=== PATIENT | male | born 1980 | race Caucasian/White ===

== ENCOUNTER 2017-02-03 22:33 | Emergency (ER) | payer OTHER ==
[~2017-02-03] VITALS: Ht 180.3 cm; Wt 117.9 kg
[2017-02-03 22:49] LABS: BASOPHILS # (AUTO) 0.1 10^3/uL (0.0-0.1); BASOPHILS % (AUTO) 1 % (0-10); EOSINOPHILS # (AUTO) 0.2 10^3/uL (0.0-0.3); EOSINOPHILS % (AUTO) 2 % (0-10); LYMPHOCYTES # (AUTO) 2.7 X 10^3 (1.0-4.0); LYMPHOCYTES % (AUTO) 29 % (12-44); MEAN CORPUSCULAR HEMOGLOBIN 31 PG (25-34); MEAN CORPUSCULAR HGB CONC 36 G/DL (32-36); MEAN CORPUSCULAR VOLUME 84 FL (80-99); MEAN PLATELET VOLUME 9.6 FL (7.4-10.4); MONOCYTES # (AUTO) 0.9 X 10^3 (0.0-1.0); MONOCYTES % (AUTO) 10 % (0-12); NEUTROPHILS # (AUTO) 5.6 X 10^3 (1.8-7.8); NEUTROPHILS % (AUTO) 59 % (42-75); PLATELET COUNT 361 10^3/uL (130-400); RED BLOOD COUNT 4.62 10^6/uL (4.35-5.85); WHITE BLOOD COUNT 9.5 10^3/uL (4.3-11.0)
[2017-02-03 23:08] LABS: ALANINE AMINOTRANSFERASE 69 U/L (0-55); ALBUMIN 4.6 G/DL (3.2-4.5); ANION GAP 17 MMOL/L (5-14); ASPARTATE AMINO TRANSFERASE 45 U/L (5-34); BILIRUBIN,TOTAL 0.9 MG/DL (0.1-1.0); BLOOD UREA NITROGEN 10 MG/DL (7-18); BUN/CREATININE RATIO 10; CALCIUM 9.2 MG/DL (8.5-10.1); CARBON DIOXIDE 17 MMOL/L (21-32); CHLORIDE 104 MMOL/L (98-107); CREATININE SERUM 0.98 MG/DL (0.60-1.30); GFR ESTIMATED > 60; GLUCOSE 159 MG/DL (70-105); SALICYLATE < 5.0 MG/DL (5.0-20.0); SODIUM 138 MMOL/L (135-145); TOTAL PROTEIN 8.4 G/DL (6.4-8.2)
[2017-02-03 23:09] LABS: ACETAMINOPHEN < 10 UG/ML (10-30); ALCOHOL < 10 MG/DL (<10)
--- NOTE | 2017-02-03 23:09 | ED General ---
General Chief Complaint: Substance Abuse Stated Complaint: SUBSTANCE ABUSE Nursing Triage Note: PT ARRIVED PER EMS [facility], PT STATES HAS ATE 1GM OF METH APPROX 1 HOUR BEFORE ARRIVAL, PT IS RESTLESS, A & O X4. Nursing Sepsis Screen: No Definite Risk Source of Information: Patient (LIMITED HISTORIAN), EMS History of Present Illness Time Seen by Provider: 22:33 Initial Comments PT ARRIVES [facility]IA [facility] PT USED METH APPROXIMATELY AN HOUR AGO--STATES HE ATE/SWALLOWED A GRAM OF METH STATES FOR THE LAST 30 MINUTES "IT FEELS LIKE HIS HEART IS GOING TO EXPLODE" STATES HE USES METH ON A REGULAR BASIS, AND LAST TIME WAS YESTERDAY AND STATES HE USED 1/4 OR 1/2 GRAM OF METH AT THAT TIME CLAIMS IT USUALLY DOES NOT MAKE HIM FEEL THIS WAY, BUT ALSO USUALLY DOES NOT USE THIS MUCH AT A TIME STATES IT USUALLY TAKES AROUND 5 HOURS FOR HIM TO "COME DOWN" FROM HIS HIGH STATES HE "WAS PASSING THROUGH" THE AREA AND STOPPED IN [place] A COUPLE OF DAYS AGO, AND HAS BEEN USING METH SINCE HE GOT HERE, AND IS ON HIS WAY TO [place]-- STATES HE IS HOMELESS AND HAS BEEN HOMELESS FOR SOME TIME, AND DOES NOT KNOW ANYONE IN THIS AREA PT STATES HE IS FROM [place], BUT GIVES HIS ADDRESS [place], [place] STATES HIS VEHICLE IS AT A [employer] PT STATES HE HAD "1 DRINK" TONIGHT Allergies and Home Medications Allergies Coded Allergies: No Known Drug Allergies (Unverified , 02/03/17) Home Medications No Active Prescriptions or Reported Meds Constitutional: other (PER HPI) Respiratory: no symptoms reported Cardiovascular: see HPI Musculoskeletal: no symptoms reported Skin: no symptoms reported Psychiatric/Neurological: See HPI Hematologic/Lymphatic: No Symptoms Reported Past Nzqygzp-Vvvocb-Ihzmnp Hx Patient Social History Alcohol Use: Occasionally Uses Recreational Drug Use: Yes (METH, THC--DENIES IV USE) Drug of Choice: METH Smoking Status: Current Everyday Smoker (1-2 PPD) Type Used: Cigarettes Recent Foreign Travel: No Contact w/Someone Who Travel: No Recent Infectious Disease Expo: No Recent Hopitalizations: No Seasonal Allergies Seasonal Allergies: No Surgeries HX Surgeries: No Respiratory Hx Respiratory Disorders: No Cardiovascular Hx Cardiac Disorders: No Neurological Hx Neurological Disorders: Yes Neurological Disorders: Traumatic Brain Injury Reproductive System Hx Reproductive Disorders: No Genitourinary Hx Genitourinary Disorders: No Gastrointestinal Hx Gastrointestinal Disorders: No Musculoskeletal Hx Musculoskeletal Disorders: No Endocrine Hx Endocrine Disorders: No HEENT HX ENT Disorders: No Cancer Hx Cancer: No Psychosocial Hx Psychiatric Problems: Yes (METH AND MARIJUANA USE) Behavioral Health Disorders: PTSD Family Medical History Other WAS IN ,BUT GOT OUT IN 2011--STATES HE TESTED NEGATIVE FOR HIV WHILE IN ,BUT DOES NOT KNOW IF HE WAS TESTED FOR HEPATITIS. HAS NOT BEEN RETESTED AT ANY TIME SINCE THEN Physical Exam Vital Signs Vital Sign - Last 12Hours 02/03/17 22:35 Temp 98.7 Pulse 124 Resp 18 B/P (MAP) 166/125 Pulse Ox 96 O2 Delivery Room Air Capillary Refill : Less Than 3 Seconds General Appearance: WD/WN, Anxious, Obese, Other (OBVIOUSLY "TWEAKING"-- CONSTANT MOVEMENTS OF ENTIRE BODY AND MOUTH, TALKING RAPIDLY NON-STOP. ) HEENT: PERRL/EOMI, Other (POOR DENTITION) Neck: Normal Inspection Respiratory: Normal Breath Sounds, No Accessory Muscle Use, No Respiratory Distress (MILD HYPERVENTILATION) Cardiovascular: No JVD, No Murmur, Tachycardia Gastrointestinal: Soft Extremity: Normal Range of Motion, No Pedal Edema Neurologic/Psychiatric: Alert, Oriented x3, No Motor/Sensory Deficits, job analyst II- XII Norm as Tested Skin: Normal Color, Warm/Dry, Tattoos/Piercings (EXTENSIVE TATTOOS) Progress/Results/Core Measures Results/Orders Lab Results Laboratory Tests Test 02/03/17 22:40 02/03/17 23:15 Range/Units White Blood Count 9.5 4.3-11.0 10^3/uL Red Blood Count 4.62 4.35-5.85 10^6/uL Hemoglobin 14.1 13.3-17.7 G/DL Hematocrit 39 L 40-54 % Mean Corpuscular Volume 84 80-99 FL Mean Corpuscular Hemoglobin 31 25-34 PG Mean Corpuscular Hemoglobin Concent 36 32-36 G/DL Red Cell Distribution Width 13.0 10.0-14.5 % Platelet Count 361 130-400 10^3/uL Mean Platelet Volume 9.6 7.4-10.4 FL Neutrophils (%) (Auto) 59 42-75 % Lymphocytes (%) (Auto) 29 12-44 % Monocytes (%) (Auto) 10 0-12 % Eosinophils (%) (Auto) 2 0-10 % Basophils (%) (Auto) 1 0-10 % Neutrophils # (Auto) 5.6 1.8-7.8 X 10^3 Lymphocytes # (Auto) 2.7 1.0-4.0 X 10^3 Monocytes # (Auto) 0.9 0.0-1.0 X 10^3 Eosinophils # (Auto) 0.2 0.0-0.3 10^3/uL Basophils # (Auto) 0.1 0.0-0.1 10^3/uL Sodium Level 138 135-145 MMOL/L Potassium Level 4.0 3.6-5.0 MMOL/L Chloride Level 104 98-107 MMOL/L Carbon Dioxide Level 17 L 21-32 MMOL/L Anion Gap 17 H 5-14 MMOL/L Blood Urea Nitrogen 10 7-18 MG/DL Creatinine 0.98 0.60-1.30 MG/DL Estimat Glomerular Filtration Rate > 60 BUN/Creatinine Ratio 10 Glucose Level 159 H 70-105 MG/DL Calcium Level 9.2 8.5-10.1 MG/DL Total Bilirubin 0.9 0.1-1.0 MG/DL Aspartate Amino Transf (AST/SGOT) 45 H 5-34 U/L Alanine Aminotransferase (ALT/SGPT) 69 H 0-55 U/L Alkaline Phosphatase 82 40-136 U/L Troponin I < 0.30 <0.30 NG/ML Total Protein 8.4 H 6.4-8.2 G/DL Albumin 4.6 H 3.2-4.5 G/DL TSH [place] Testing 2.02 0.35-4.94 UIU/ML Salicylates Level < 5.0 L 5.0-20.0 MG/DL Acetaminophen Level < 10 L 10-30 UG/ML Serum Alcohol < 10 <10 MG/DL Urine Color YELLOW Urine Clarity CLEAR Urine pH 7 5-9 Urine Specific [place] 1.010 L 1.016-1.022 Urine Protein 2+ H NEGATIVE Urine Glucose (UA) NEGATIVE NEGATIVE Urine Ketones NEGATIVE NEGATIVE Urine Nitrite NEGATIVE NEGATIVE Urine Bilirubin NEGATIVE NEGATIVE Urine Urobilinogen 1 NORMAL MG/DL Urine Leukocyte Esterase 1+ H NEGATIVE Urine RBC (Auto) NEGATIVE NEGATIVE Urine RBC NONE /HPF Urine WBC 0-2 /HPF Urine Squamous Epithelial Cells 0-2 /HPF Urine Crystals NONE /LPF Urine Bacteria TRACE /HPF Urine Casts PRESENT /LPF Urine Hyaline Casts RARE /LPF Urine Mucus NEGATIVE /LPF Urine Culture Indicated NO Urine Opiates Screen NEGATIVE NEGATIVE Urine Oxycodone Screen NEGATIVE NEGATIVE Urine Methadone Screen NEGATIVE NEGATIVE Urine Propoxyphene Screen NEGATIVE NEGATIVE Urine Barbiturates Screen NEGATIVE NEGATIVE Ur Tricyclic Antidepressants Screen NEGATIVE NEGATIVE Urine Phencyclidine Screen NEGATIVE NEGATIVE Urine Amphetamines Screen POSITIVE H NEGATIVE Urine Methamphetamines Screen POSITIVE H NEGATIVE Urine Benzodiazepines Screen NEGATIVE NEGATIVE Urine Cocaine Screen NEGATIVE NEGATIVE Urine Cannabinoids Screen POSITIVE H NEGATIVE My Orders Orders - MECHE NEELY DO Ua Culture If Indicated (02/03/17 22:38) Thyroid Analyzer (02/03/17 22:38) Drug Screen Stat (Urine) (02/03/17 22:38) Cbc With Automated Diff (02/03/17 22:38) Comprehensive Metabolic Panel (02/03/17 22:38) Alcohol (02/03/17 22:38) Acetaminophen (02/03/17 22:38) Salicylate (02/03/17 22:38) Ekg Tracing (02/03/17 22:38) Monitor-Rhythm Ecg Trace Only (02/03/17 22:38) Troponin I (02/03/17 23:15) Hepatitis Panel Acute (02/03/17 23:51) Nitroglycerin Ointment (Nitrobid Ointme (02/04/17 00:00) Metoprolol Succinate (Xl) Tab (Toprol Xl (02/04/17 00:00) Medications Given in ED Current Medications Medications Dose Ordered Sig/Lisha Route Start Time Stop Time Status Last Admin Dose Admin Nitroglycerin 1 inch ONCE ONCE TOP 02/04/17 00:00 02/04/17 00:27 DC 02/04/17 00:00 1 INCH Vital Signs/I&O Vital Sign - Last 12Hours 02/03/17 22:35 Temp 98.7 Pulse 124 Resp 18 B/P (MAP) 166/125 Pulse Ox 96 O2 Delivery Room Air Blood Pressure Mean: 139 Progress Note : Progress Note HEART RATE AND BP DOWN AND PT IS CALMER AT TIME OF DISMISSAL UNEVENTFUL ER STAY ECG Initial ECG Impression Time: 22:38 Initial ECG Rate: 120 Initial ECG Rhythm: S.Tach Initial ECG Impression: Nonspecific Changes Initial ECG Comparisson: No Previous ECG Available Departure Impression Impression: Primary Impression: METHAMPHETAMINE USE, CHRONIC Additional Impressions: HTN--SUSPECTED DRUG-INDUCED Elevated liver enzymes Departure-Patient Inst. Referrals: UNKNOWN (PCP/Family) Primary Care Physician Patient Instructions: ALCOHOL AND SUBSTANCE ABUSE, Methamphetamine Add. Discharge Instructions: NO DRUGS OR ALCOHOL!!! All discharge instructions reviewed with patient and/or family. Voiced understanding. Scripts No Active Prescriptions or Reported Meds MECHE NEELY DO Feb 03, 2017 23:09
[2017-02-03 23:24] LABS: BILIRUBIN,URINE NEGATIVE (NEGATIVE); KETONES,URINE NEGATIVE (NEGATIVE); LEUKOCYTE ESTERASE ,URINE 1+ (NEGATIVE); NITRITE,URINE NEGATIVE (NEGATIVE); PH,URINE 7 (5-9); PROTEIN,URINE 2+ (NEGATIVE); UROBILINOGEN,URINE 1 MG/DL (NORMAL)
[2017-02-03 23:36] LABS: HYALINE CASTS, URINE RARE /LPF; SQUAMOUS EPITHELIAL CELL,UR 0-2 /HPF; WBC,URINE 0-2 /HPF
[2017-02-04] MEDS ORDERED: meTOproloL SUCCINATE 50 MG (TOPROL XL) TAB PO SCH
[2017-02-04] MEDS ORDERED: NITROGLYCERIN 2% OINT 1 GM UNIT DOSE PACKET TOP ONE
[2017-02-04 00:58] VITALS: BP 165/105
== END 2017-02-04 01:00 | disposition home or self-care (01) ==
LOC: ER 22:35
DX: F15.20 Other stimulant dependence, uncomplicated (principal); F12.10 Cannabis abuse, uncomplicated; F17.210 Nicotine dependence, cigarettes, uncomplicated; Z59.0 Homelessness
CPT/HCPCS: 36415; 80053; 80074; 80306; 80320; 80329; 81000; 84443; 84484; 85025; 93005; 93041